=== PATIENT | female | born 1970 | race Caucasian/White ===

== ENCOUNTER → 2017-03-14 | Outpatient (CLI) | payer BC ==
[~2017-03-14] MED LIST: HYDROCHLOROTHIA25 M1 PO; KLOR-CON M1010 ME1 PO; LISINOPRIL10 M1 PO; METOPROLOL SUCC50 M1 PO; NORVASC10 MG PO; XANAX0.25 MG PO
[2017-03-14 07:56] LABS: HEMATOCRIT 42.6 % (37.0-47.0); HEMOGLOBIN 14.3 g/dl (12.0-16.0); MEAN CELL VOLUME 96.6 fl (81.0-99.0); MEAN CORPUSCULAR HGB 32.4 pg (27.0-31.0); MEAN CORPUSCULAR HGB CONC 33.6 g/dl (33.0-37.0); MEAN PLATELET VOLUME 9.7 fl (9.6-12.3); RED BLOOD COUNT 4.41 10*6/uL (4.10-5.10); RED CELL DISTRI WIDTH 12.9 % (0-14.5); WHITE BLOOD COUNT 6.3 10*3/uL (4.8-10.8)
[2017-03-14 08:24] LABS: BUN 14 mg/dl (7-24); CARBON DIOXIDE 29 mmol/L (21-32); CHLORIDE 99 mmol/L (98-107); CHOLESTEROL 166 mg/dL (<200); EST GLOM FILT AFRICAN AMERICAN > 60 ml/min; GLUCOSE 96 mg/dL (65-99); POTASSIUM 3.3 mmol/L (3.5-5.1); SGOT/AST 16 IU/L (3-35); SGPT/ALT 18 U/L (12-78); SODIUM 138 mmol/L (136-145); TRIGLYCERIDES 57 mg/dl (<150); VLDL CHOLESTEROL 11 mg/dL (6-40)
[2017-03-14 08:34] LABS: ALKALINE PHOSPHATASE 63 U/L (45-117); HDL CHOLESTEROL 80 mg/dl (40-60); LDL CHOLESTEROL 75 mg/dL (9-159); TOTAL PROTEIN 7.4 gm/dL (6.4-8.2)
[2017-03-14 08:47] LABS: VITAMIN D, 25-HYDROXY 24.1 ng/mL (30-100)
== END | disposition home or self-care (01) ==
LOC: LAB 07:36
PROVIDERS: Family Medicine
DX: I10 Essential (primary) hypertension (principal); E78.00 Pure hypercholesterolemia, unspecified; E55.9 Vitamin D deficiency, unspecified; L65.9 Nonscarring hair loss, unspecified

== ENCOUNTER → 2017-03-21 | Outpatient (CLI) | payer BC | END | disposition home or self-care (01) | LOC: CARD 08:22 | DX: I07.1 Rheumatic tricuspid insufficiency (principal); R00.1 Bradycardia, unspecified; I37.1 Nonrheumatic pulmonary valve insufficiency ==

== ENCOUNTER → 2019-03-26 | Day surgery (SDC) | payer BC ==
[~2019-03-26] VITALS: Ht 160 cm; Wt 87.5 kg
[~2019-03-26] MED LIST changes: +LOSARTAN POTASS50 M1 PO
--- NOTE | ~2019-03-26 | O ---
[place], [place] OPERATIVE NOTE NAME: NASIM HICKS UNIT #: [id number] ROOM: DOCTOR: RANDAL GALVIN,NANCY BIRTHDATE: [birth year] DOS: 03/26/2019 HISTORY OF PRESENT ILLNESS: This is a 49 years old who has presented with chief complaint of concern about colonic screening. ALLERGIES: PENICILLIN, TETRACYCLINE, SULFA. FAMILY HISTORY: Mother with colonic resection, details not known. PAST SURGICAL HISTORY: Cholecystectomy, . PAST MEDICAL HISTORY: Hypertension. PROCEDURE: Today's procedure part of investigation is colonoscopy. PREMEDICATION: Propofol. SCOPE: Olympus forward-viewing colonoscope 10L video. REPORT: After putting the patient in left lateral position and application of lubricant to the scope, the scope was introduced. Thereafter, under direct visualization, advanced through the length of colon without difficulty. Diverticulosis was appreciated. Base of the cecum explored, appendiceal orifice identified, and the ileocecal valve was defined. Scope was gradually withdrawn from ascending, transverse, descending colon. The patient extubated, tolerated the procedure well. IMPRESSION: Diverticulosis. PLAN AND DISCUSSION: High fiber fruit diet, avoiding excessive greasy food and follow up routinely with you in office, p.r.n. visit with us in [facility]. NANCY TEE MD CM:OPRECORD:OPERATIVE NOTE [id number] NANCY TEE MD 03/26/19 1111 interface
[2019-03-26 08:43] VITALS: BP 118/82
[2019-03-26 10:14] VITALS: BP 116/73
[2019-03-26 10:29] VITALS: BP 115/74
[2019-03-26 10:44] VITALS: BP 131/81
== END | disposition home or self-care (01) ==
LOC: SDC 03-21 09:30
DX: Z12.11 Encounter for screening for malignant neoplasm of colon (principal); K57.30 Diverticulosis of large intestine without perforation or abscess without bleeding; I10 Essential (primary) hypertension; E66.9 Obesity, unspecified; Z88.0 Allergy status to penicillin; Z88.1 Allergy status to other antibiotic agents; Z88.2 Allergy status to sulfonamides; Z72.89 Other problems related to lifestyle; Z98.51 Tubal ligation status; Z88.5 Allergy status to narcotic agent; Z90.49 Acquired absence of other specified parts of digestive tract; Z98.890 Other specified postprocedural states; Z79.899 Other long term (current) drug therapy; Z82.49 Family history of ischemic heart disease and other diseases of the circulatory system

== ENCOUNTER → 2021-03-09 | Outpatient (CLI) | payer BC ==
[2021-03-09 08:48] LABS: MEAN CELL VOLUME 96.5 fl (81.0-99.0); MEAN CORPUSCULAR HGB 31.8 pg (27.0-31.0); MEAN CORPUSCULAR HGB CONC 32.9 g/dl (33.0-37.0); MEAN PLATELET VOLUME 9.8 fl (9.6-12.3); RED BLOOD COUNT 4.25 10*6/uL (4.10-5.10); RED CELL DISTRI WIDTH 12.7 % (0-14.5); WHITE BLOOD COUNT 7.7 10*3/uL (4.8-10.8)
[2021-03-09 09:25] LABS: ALKALINE PHOSPHATASE 60 U/L (45-117); BUN 19 mg/dl (7-24); CHLORIDE 99 mmol/L (98-107); CHOLESTEROL 228 mg/dL (<200); CREATININE 0.85 mg/dL (0.55-1.02); LDL CHOLESTEROL 130 mg/dL (9-159); POTASSIUM 3.6 mmol/L (3.5-5.1); SGOT/AST 13 IU/L (3-35); SGPT/ALT 26 U/L (12-78); SODIUM 135 mmol/L (136-145); TOTAL PROTEIN 7.9 gm/dL (6.4-8.2); TRIGLYCERIDES 174 mg/dl (<150)
== END | disposition home or self-care (01) ==
LOC: LAB 07:52
PROVIDERS: ATTEND Nurse Practitioner Family
DX: I10 Essential (primary) hypertension (principal)

== ENCOUNTER → 2022-02-24 | Outpatient (CLI) | payer BC ==
[2022-02-24 08:55] LABS: HEMATOCRIT 43.2 % (37.0-47.0); MEAN CELL VOLUME 93.7 fl (81.0-99.0); MEAN CORPUSCULAR HGB 31.2 pg (27.0-31.0); MEAN CORPUSCULAR HGB CONC 33.3 g/dl (33.0-37.0); MEAN PLATELET VOLUME 9.9 fl (9.6-12.3); RED BLOOD COUNT 4.61 10*6/uL (4.10-5.10); RED CELL DISTRI WIDTH 12.5 % (0-14.5); WHITE BLOOD COUNT 5.6 10*3/uL (4.8-10.8)
[2022-02-24 09:12] LABS: BUN 15 mg/dl (7-24); CHLORIDE 103 mmol/L (98-107); CHOLESTEROL 181 mg/dL (<200); POTASSIUM 3.3 mmol/L (3.5-5.1); SGOT/AST 12 IU/L (3-35); SGPT/ALT 19 U/L (12-78); SODIUM 134 mmol/L (136-145); TOTAL PROTEIN 7.5 gm/dL (6.4-8.2); TRIGLYCERIDES 113 mg/dl (<150)
[2022-02-24 09:13] LABS: ALKALINE PHOSPHATASE 62 U/L (45-117); LDL CHOLESTEROL 108 mg/dL (9-159)
== END | disposition home or self-care (01) ==
LOC: LAB 08:39
PROVIDERS: ATTEND Family Medicine
DX: I10 Essential (primary) hypertension (principal); E78.00 Pure hypercholesterolemia, unspecified

== ENCOUNTER → 2022-07-18 | Outpatient (CLI) | payer BC | LOC: MAMMO 14:30 | PROVIDERS: ATTEND Obstetrics & Gynecology | DX: Z12.31 Encounter for screening mammogram for malignant neoplasm of breast (principal); N64.89 Other specified disorders of breast ==

== ENCOUNTER → 2022-08-02 | Outpatient (CLI) | payer BC | LOC: US 00:21 | PROVIDERS: ATTEND Obstetrics & Gynecology | DX: R92.8 Other abnormal and inconclusive findings on diagnostic imaging of breast (principal) ==